=== PATIENT | female | born 1965 | race American Indian/Alaskan Native ===

== ENCOUNTER 2019-10-25 10:00 | Emergency (ER) | payer BC ==
[2019-10-25 10:07] VITALS: BP 129/45
--- NOTE | 2019-10-25 10:26 | Emergency Department Report ---
Suture/Staple Removal - HPI Chief Complaint: Laceration/Recheck/Suture Stated Complaint: STICHES REMOVAL Time Seen by Provider: 10/25/19 10:24 When Sutures or [place] Placed: 5-7 Days Ago Wound Location: had ED Review of Systems ROS: Stated complaint: STICHES REMOVAL Other details as noted in HPI Comment: All other systems reviewed and negative ED Past Medical Hx - Past Medical History Previous Medical History?: No - Surgical History Past Surgical History?: Yes Additional Surgical History: C SECTION - Family History Family history: no significant - Social History Smoking Status: Never Smoker Substance Use Type: None Suture Removal Exam - Exam General: Vital signs noted. No distress. Alert and acting appropriately. Wound: No Pathologic Erythema, No Tenderness, No Drainage, No Pus, No Wound Dehiscence Other Systems: All other systems reviewed and are unremarkable. ED Course Vital Signs 10/25/19 10:06 Temperature 97.5 F L Pulse Rate 63 Respiratory 16 Rate Blood Pressure 129/45 O2 Sat by Pulse 100 Oximetry ED Recheck MDM - Core Measures Measure Exclusions: not indicated - Differential Diagnosis Suture/Staple Removal - Medical Decision Making suture removal tolerated well Critical care attestation.: If time is entered above; I have spent that time in minutes in the direct care of this critically ill patient, excluding procedure time. ED Disposition Clinical Impression: Visit for suture removal Disposition: DC-01 TO HOME OR SELFCARE Is pt being admited?: No Does the pt Need Aspirin: No Condition: Stable Instructions: Suture Removal (ED) Referrals: CEASAR PADRON MD [Staff Physician] - 3-5 Days Time of Disposition: 10:25
== END 2019-10-25 10:31 | disposition home or self-care (01) ==
LOC: ED 10:00
DX: Z48.02 Encounter for removal of sutures (principal); Z98.890 Other specified postprocedural states

== ENCOUNTER 2020-06-02 03:20 | Emergency (ER) | payer BC ==
[2020-06-02 04:27] LABS: Basophils % (Auto) 0.5 % (0.0-1.8); Eosinophils # (Auto) 0.1 K/mm3 (0.0-0.4); Eosinophils % (Auto) 1.8 % (0.0-4.3); Hematocrit 40.1 % (30.3-42.9); Hemoglobin 13.1 gm/dl (10.1-14.3); Lymphocytes # (Auto) 2.8 K/mm3 (1.2-5.4); Lymphocytes % (Auto) 37.5 % (13.4-35.0); Mean Corpuscular HGB Conc 33 % (30-34); Mean Corpuscular Volume 80 fl (79-97); Monocytes # (Auto) 0.6 K/mm3 (0.0-0.8); Monocytes % (Auto) 8.1 % (0.0-7.3); Platelet Count 297 K/mm3 (140-440); Red Blood Count 5.02 M/mm3 (3.65-5.03)
[2020-06-02 04:29] LABS: Alanine Aminotransferase 31 units/L (7-56); Albumin 3.9 g/dL (3.9-5); BUN/Creatinine Ratio 16; Blood Urea Nitrogen 13 mg/dL (7-17); Calcium 9.4 mg/dL (8.4-10.2); Hemolysis Index 5
[2020-06-02 05:25] LABS: Bacteria,Urine 1+ /HPF (Negative); Bilirubin,Urine NEG (Negative); Blood,Urine NEG (Negative); Calcium Oxalate Crystals,Urine 1+; Color,Urine Yellow (Yellow); Mucus,Urine FEW /HPF; Protein,Urine <15 mg/dL mg/dL (Negative)
--- NOTE | 2020-06-02 07:43 | Emergency Department Report ---
ED General Adult HPI - General Chief complaint: Abdominal Pain Stated complaint: EMESIS/DIARRHEA Time Seen by Provider: 06/02/20 07:26 Source: patient Mode of arrival: Ambulatory Limitations: No Limitations - History of Present Illness Initial comments: 54-year-old -[place] female patient presents with complaints of upper abdominal pain x 2 days. Patient states pain occurs mostly after eating and also states she has postprandial vomiting and diarrhea. She describes the pain as sharp and rates it as a 6/10 in severity. No current pain per patient. She denies any hematemesis/coffee-ground emesis, melena/hematochezia, chest pain, shortness of breath, cough, recent antibiotic use, or urinary symptoms. She also reports she had a temperature of 101 yesterday that was resolved with Tylenol. Tylenol does help some with her pain. Abdominal surgical history includes a . She also states she does have issues with GERD but denies taking any medication for it. Also denies history of PUD/GI bleed or any other chronic medical issues. - Related Data Previous Rx's Medication Instructions Recorded Last Taken Type Ondansetron [Zofran Odt] 4 mg PO Q8HR #15 tab.rapdis 06/02/20 Unknown Rx Pantoprazole [Protonix] 40 mg PO QAM 14 Days #14 tablet 06/02/20 Unknown Rx Allergies Allergy/AdvReac Type Severity Reaction Status Date / Time No Known Allergies Allergy Unverified 10/25/19 10:03 ED Review of Systems ROS: Stated complaint: EMESIS/DIARRHEA Other details as noted in HPI Constitutional: chills, fever. denies: diaphoresis, malaise, weakness ENT: denies: ear pain, throat pain Respiratory: denies: cough, shortness of breath Cardiovascular: denies: chest pain, palpitations Endocrine: denies: excessive sweating Gastrointestinal: abdominal pain, nausea, vomiting, diarrhea. denies: constipation, hematemesis, melena, hematochezia Genitourinary: denies: urgency, dysuria, frequency, hematuria, abnormal menses Musculoskeletal: denies: back pain Skin: denies: change in color Neurological: denies: headache, weakness, paresthesias Hematological/Lymphatic: denies: easy bleeding, swollen glands ED Past Medical Hx - Past Medical History Previous Medical History?: No - Surgical History Past Surgical History?: Yes Additional Surgical History: C SECTION - Social History Smoking Status: Never Smoker Substance Use Type: None - Medications Home Medications: Home Medications Medication Instructions Recorded Confirmed Last Taken Type Ondansetron [Zofran Odt] 4 mg PO Q8HR #15 tab.rapdis 06/02/20 Unknown Rx Pantoprazole [Protonix] 40 mg PO QAM 14 Days #14 tablet 06/02/20 Unknown Rx ED Physical Exam - General Limitations: No Limitations General appearance: alert, in no apparent distress, obese - Head Head exam: Present: atraumatic, normocephalic - Eye Eye exam: Present: normal appearance. Absent: scleral icterus - ENT ENT exam: Present: normal orophraynx, mucous membranes moist - Neck Neck exam: Present: normal inspection - Respiratory Respiratory exam: Present: normal lung sounds bilaterally. Absent: respiratory distress, chest wall tenderness - Cardiovascular Cardiovascular Exam: Present: regular rate, normal rhythm. Absent: systolic murmur, diastolic murmur, rubs, gallop - GI/Abdominal GI/Abdominal exam: Present: soft, tenderness, normal bowel sounds. Absent: distended, rigid, organomegaly, mass - Expanded GI/Abdominal Exam Expanded GI/Abdominal exam: Present: Weathers's sign - Extremities Exam Extremities exam: Present: normal inspection - Back Exam Back exam: Present: normal inspection - Neurological Exam Neurological exam: Present: alert, oriented X3 - Psychiatric Psychiatric exam: Present: normal affect, normal mood - Skin Skin exam: Present: warm, dry, intact, normal color. Absent: rash, cyanosis, diaphoretic, erythema, petechiae, ecchymosis ED Course Vital Signs 06/02/20 06/02/20 06/02/20 03:36 10:47 11:08 Temperature 98.4 F 98.6 F Pulse Rate 58 L 56 L Respiratory 17 16 Rate Blood Pressure 145/52 Blood Pressure 141/74 [Left] O2 Sat by Pulse 98 99 Oximetry ED Medical Decision Making - Lab Data Result diagrams: 06/02/20 03:55 06/02/20 03:55 Lab Results 06/02/20 06/02/20 06/02/20 Range/Units 03:54 03:55 03:55 WBC 7.5 (4.5-11.0) K/mm3 RBC 5.02 (3.65-5.03) M/mm3 Hgb 13.1 (10.1-14.3) gm/dl Hct 40.1 (30.3-42.9) % MCV 80 (79-97) fl MCH 26 L (28-32) pg MCHC 33 (30-34) % RDW 15.0 (13.2-15.2) % Plt Count 297 (140-440) K/mm3 Lymph % (Auto) 37.5 H (13.4-35.0) % [place] % (Auto) 8.1 H (0.0-7.3) % Eos % (Auto) 1.8 (0.0-4.3) % Baso % (Auto) 0.5 (0.0-1.8) % Lymph # (Auto) 2.8 (1.2-5.4) K/mm3 [place] # (Auto) 0.6 (0.0-0.8) K/mm3 Eos # (Auto) 0.1 (0.0-0.4) K/mm3 Baso # (Auto) 0.0 (0.0-0.1) K/mm3 Seg Neutrophils % 52.1 (40.0-70.0) % Seg Neutrophils # 3.9 (1.8-7.7) K/mm3 Sodium 142 (137-145) mmol/L Potassium 4.3 (3.6-5.0) mmol/L Chloride 105.9 (98-107) mmol/L Carbon Dioxide 25 (22-30) mmol/L Anion Gap 15 mmol/L BUN 13 (7-17) mg/dL Creatinine 0.8 (0.6-1.2) mg/dL Estimated GFR > 60 ml/min BUN/Creatinine Ratio 16 % Glucose 117 H (65-100) mg/dL Calcium 9.4 (8.4-10.2) mg/dL Total Bilirubin 0.20 (0.1-1.2) mg/dL AST 24 (5-40) units/L ALT 31 (7-56) units/L Alkaline Phosphatase 60 (35-129) units/L Total Protein 7.1 (6.3-8.2) g/dL Albumin 3.9 (3.9-5) g/dL Albumin/Globulin Ratio 1.2 % Lipase 31 (13-60) units/L Urine Color Yellow (Yellow) Urine Turbidity Clear (Clear) Urine pH 6.0 (5.0-7.0) Ur Specific [place] 1.024 (1.003-1.030) Urine Protein <15 mg/dl (Negative) mg/dL Urine Glucose (UA) Neg (Negative) mg/dL Urine Ketones Neg (Negative) mg/dL Urine Blood Neg (Negative) Urine Nitrite Neg (Negative) Urine Bilirubin Neg (Negative) Urine Urobilinogen 2.0 (<2.0) mg/dL Ur Leukocyte Esterase Neg (Negative) Urine WBC (Auto) 1.0 (0.0-6.0) /HPF Urine RBC (Auto) 1.0 (0.0-6.0) /HPF U Epithel Cells (Auto) 2.0 (0-13.0) /HPF Urine Bacteria (Auto) 1+ (Negative) /HPF Calcium Oxalate Crystal 1+ Urine Mucus Few /HPF - Radiology Data Radiology results: report reviewed LIMITED RUQ ABDOMINAL ULTRASOUND INDICATION: pain, worse after eating. COMPARISON: No relevant prior imaging study available. FINDINGS: Pancreas: Visualized portions show no significant abnormality. Abdominal Aorta: No significant abnormality. IVC: No significant abnormality. Liver: The liver measures 16.7 cm in length. Diffusely echogenic. Normal hepatopedal blood flow in the main portal vein. Gallbladder: No significant abnormality. Bile ducts: No significant abnormality. Common bile duct measures 5 mm. Right kidney: No significant abnormality visualized.. Free fluid: None. Additional Findings: None. IMPRESSION: 1. Hepatomegaly with diffusely echogenic liver, most commonly seen with steatosis. - Medical Decision Making 54-year-old -[place] female patient presents with complaints of upper abdominal pain x 2 days. Patient states pain occurs mostly after eating and also states she has postprandial vomiting and diarrhea. She describes the pain as sharp and rates it as a 6/10 in severity. No current pain per patient. She denies any hematemesis/coffee-ground emesis, melena/hematochezia, chest pain, shortness of breath, cough, recent antibiotic use, or urinary symptoms. She also reports she had a temperature of 101 yesterday that was resolved with Tylenol. Tylenol does help some with her pain. Abdominal surgical history includes a . She also states she does have issues with GERD but denies taking any medication for it. Also denies history of PUD/GI bleed or any other chronic medical issues. On exam, patient has epigastric and right upper quadrant tenderness without rebound or guarding. CBC and CMP and lipase are normal. Right upper quadrant ultrasound shows fatty liver disease without cholecystitis or cholelithiasis. No vomiting observed here in ED and she is tolerating fluids p.o. Vitals are normal, she is well-appearing, she is stable for discharge home. Will treat for gastroenteritis. Recommend follow-up with GI. Strict return precautions were discussed in detail with patient who verbalizes understanding Critical care attestation.: If time is entered above; I have spent that time in minutes in the direct care of this critically ill patient, excluding procedure time. ED Disposition Clinical Impression: Fatty liver, Acute upper abdominal pain, Gastroenteritis GERD (gastroesophageal reflux disease) Qualifiers: Esophagitis presence: esophagitis presence not specified Qualified Code(s): K21.9 - Gastro-esophageal reflux disease without esophagitis Disposition: DC-01 TO HOME OR SELFCARE Is pt being admited?: No Condition: Stable Instructions: Gastroenteritis (ED), Non-Alcoholic Fatty Liver Disease (ED), Abdominal Pain (ED) Prescriptions: Pantoprazole [Protonix] 40 mg PO QAM 14 Days #14 tablet Ondansetron [Zofran Odt] 4 mg PO Q8HR #15 tab.rapdis Referrals: JESSICA PARIS MD [Primary Care Provider] - 2-3 Days Forms: Work/School Release Form(ED)
--- NOTE | 2020-06-02 10:34 | Ultrasound Report ---
LIMITED RUQ ABDOMINAL ULTRASOUND INDICATION: pain, worse after eating. COMPARISON: No relevant prior imaging study available. FINDINGS: Pancreas: Visualized portions show no significant abnormality. Abdominal Aorta: No significant abnormality. IVC: No significant abnormality. Liver: The liver measures 16.7 cm in length. Diffusely echogenic. Normal hepatopedal blood flow in t he main portal vein. Gallbladder: No significant abnormality. Bile ducts: No significant abnormality. Common bile duct measures 5 mm. Right kidney: No significant abnormality visualized.. Free fluid: None. Additional Findings: None. IMPRESSION: 1. Hepatomegaly with diffusely echogenic liver, most commonly seen with steatosis. Signer Name: Paul Baker MD Signed: 06/02/2020 10:29 AM Workstation Name: [id number]
[2020-06-02] MEDS ORDERED: ONDANSETRON 4 MG ODT TAB PO ONE (10:36)
[2020-06-02] MEDS ORDERED: ALUM-MAG HYDROXIDE-SIMETHICONE 200-200-20MG/5ML ORAL LIQD 30 ML PO ONE (10:36)
[2020-06-02] MEDS ORDERED: LIDOCAINE VISCOUS 2% 15 ML ORAL LIQD PO ONE (10:36)
[2020-06-02] MEDS ORDERED: LIDOCAINE (1%) 10 MG/1 ML VIAL 20 ML MDV INFILTRATI ONE (11:02)
[2020-06-02] MEDS ORDERED: oxyCODONE /ACETAMINOPHEN 5-325MG TAB PO ONE (11:02)
[2020-06-02] MEDS ORDERED: CLINDAMYCIN 150 MG CAP PO ONE (11:06)
[2020-06-02 11:08] VITALS: BP 141/74
== END 2020-06-02 11:09 | disposition home or self-care (01) ==
LOC: ED 03:20
DX: K21.9 Gastro-esophageal reflux disease without esophagitis (principal); K52.89 Other specified noninfective gastroenteritis and colitis; K76.0 Fatty (change of) liver, not elsewhere classified; Z98.890 Other specified postprocedural states
CPT/HCPCS: 36415; 76705; 80053; 81001; 83690; 85025; Q0162

== ENCOUNTER 2020-07-18 02:31 | Emergency (ER) | payer BC ==
[2020-07-18 03:01] VITALS: BP 109/45
[2020-07-18 04:18] LABS: Bilirubin,Urine NEG (Negative); Blood,Urine NEG (Negative); Color,Urine Yellow (Yellow); Mucus,Urine 1+ /HPF; Protein,Urine <15 mg/dL mg/dL (Negative)
[2020-07-18] MEDS ORDERED: NITROFURANTOIN MONOHYD/M-CRYST 100 MG CAP PO ONE (05:01)
[2020-07-18] MEDS ORDERED: IBUPROFEN 800 MG TAB PO ONE (05:01)
[2020-07-18 06:03] LABS: Basophils # (Auto) 0.1 K/mm3 (0.0-0.1); Basophils % (Auto) 0.7 % (0.0-1.8); Eosinophils # (Auto) 0.1 K/mm3 (0.0-0.4); Eosinophils % (Auto) 1.7 % (0.0-4.3); Hematocrit 43.3 % (30.3-42.9); Hemoglobin 13.8 gm/dl (10.1-14.3); Lymphocytes # (Auto) 3.3 K/mm3 (1.2-5.4); Lymphocytes % (Auto) 42.8 % (13.4-35.0); Mean Corpuscular HGB Conc 32 % (30-34); Mean Corpuscular Volume 79 fl (79-97); Monocytes # (Auto) 0.6 K/mm3 (0.0-0.8); Monocytes % (Auto) 7.7 % (0.0-7.3); Platelet Count 306 K/mm3 (140-440); Red Blood Count 5.47 M/mm3 (3.65-5.03); Red Cell Distribution Width 14.3 % (13.2-15.2)
[2020-07-18 06:18] LABS: Alanine Aminotransferase 31 units/L (7-56); BUN/Creatinine Ratio 13; Blood Urea Nitrogen 10 mg/dL (7-17); Calcium 9.6 mg/dL (8.4-10.2); Hemolysis Index 20
--- NOTE | 2020-07-18 06:27 | Emergency Department Report ---
ED Female HPI - General Chief complaint: Abdominal Pain Stated complaint: RIGHT SIDE PAIN Source: patient Mode of arrival: Ambulatory Limitations: No Limitations - History of Present Illness Initial comments: Patient is a 54-year-old female who presents for right flank pain radiating to suprapubic for 3 days.. Patient states dysuria frequency urgency. Patient denies hematuria. There is no history of renal stones there is no fever chills or nausea vomiting. Pain is described at 3/10 stinging. There is no vaginal pain no vaginal discharge no vaginal bleeding patient is postmenopausal/and status post tubal ligation. Patient is tolerating p.o. intake without symptoms. MD Complaint: dysuria - Related Data Previous Rx's Medication Instructions Recorded Last Taken Type Ondansetron [Zofran Odt] 4 mg PO Q8HR #15 tab.rapdis 06/02/20 Unknown Rx Pantoprazole [Protonix] 40 mg PO QAM 14 Days #14 tablet 06/02/20 Unknown Rx Ibuprofen [Motrin 800 MG tab] 800 mg PO Q8HR PRN #30 tablet 07/18/20 Unknown Rx Nitrofurantoin [place]/M-Cryst 100 mg PO BID 7 Days #14 capsule 07/18/20 Unknown Rx [Macrobid CAP] Allergies Allergy/AdvReac Type Severity Reaction Status Date / Time No Known Allergies Allergy Unverified 10/25/19 10:03 ED Review of Systems ROS: Stated complaint: RIGHT SIDE PAIN Other details as noted in HPI Constitutional: denies: chills, fever Eyes: denies: eye pain, eye discharge, vision change ENT: denies: ear pain, throat pain Respiratory: denies: cough, shortness of breath, wheezing Cardiovascular: denies: chest pain, palpitations Endocrine: no symptoms reported Gastrointestinal: abdominal pain (super pubic). denies: nausea, vomiting Genitourinary: urgency, dysuria, frequency. denies: hematuria, discharge Musculoskeletal: back pain (right flank pain ) Skin: denies: rash, lesions Neurological: denies: headache, weakness, paresthesias Psychiatric: denies: anxiety, depression Hematological/Lymphatic: denies: easy bleeding, easy bruising ED Past Medical Hx - Past Medical History Previous Medical History?: No - Surgical History Past Surgical History?: Yes Additional Surgical History: C SECTION - Social History Smoking Status: Never Smoker Substance Use Type: None - Medications Home Medications: Home Medications Medication Instructions Recorded Confirmed Last Taken Type Ondansetron [Zofran Odt] 4 mg PO Q8HR #15 tab.rapdis 06/02/20 Unknown Rx Pantoprazole [Protonix] 40 mg PO QAM 14 Days #14 tablet 06/02/20 Unknown Rx Ibuprofen [Motrin 800 MG tab] 800 mg PO Q8HR PRN #30 tablet 07/18/20 Unknown Rx Nitrofurantoin [place]/M-Cryst 100 mg PO BID 7 Days #14 capsule 07/18/20 Unknown Rx [Macrobid CAP] ED Physical Exam - General Limitations: No Limitations General appearance: alert, in no apparent distress - Head Head exam: Present: atraumatic, normocephalic - Eye Eye exam: Present: normal appearance, EOMI - ENT ENT exam: Present: mucous membranes moist - Neck Neck exam: Present: normal inspection - Respiratory Respiratory exam: Present: normal lung sounds bilaterally. Absent: respiratory distress, wheezes, stridor - Cardiovascular Cardiovascular Exam: Present: regular rate, normal rhythm, normal heart sounds. Absent: systolic murmur, diastolic murmur, rubs, gallop - GI/Abdominal GI/Abdominal exam: Present: soft, normal bowel sounds. Absent: distended, tenderness, guarding, rebound, rigid, bruit, hernia - Rectal Rectal exam: Present: deferred - Extremities Exam Extremities exam: Present: normal inspection, full ROM. Absent: tenderness - Back Exam Back exam: Present: normal inspection, full ROM. Absent: tenderness, CVA tenderness (R), CVA tenderness (L) - Neurological Exam Neurological exam: Present: alert, oriented X3, CN II-XII intact, normal gait - Psychiatric Psychiatric exam: Present: normal affect, normal mood - Skin Skin exam: Present: warm, dry, intact, normal color. Absent: rash ED Course Vital Signs 07/18/20 02:48 Temperature 98.1 F Pulse Rate 65 Respiratory 18 Rate Blood Pressure 109/45 O2 Sat by Pulse 96 Oximetry ED Medical Decision Making - Lab Data Result diagrams: 07/18/20 05:45 07/18/20 05:45 Labs 07/18/20 07/18/20 07/18/20 05:45 05:45 Unknown WBC 7.8 RBC 5.47 H Hgb 13.8 Hct 43.3 H MCV 79 MCH 25 L MCHC 32 RDW 14.3 Plt Count 306 Lymph % (Auto) 42.8 H [place] % (Auto) 7.7 H Eos % (Auto) 1.7 Baso % (Auto) 0.7 Lymph # (Auto) 3.3 [place] # (Auto) 0.6 Eos # (Auto) 0.1 Baso # (Auto) 0.1 Seg Neutrophils % 47.1 Seg Neutrophils # 3.7 Sodium 141 Potassium 4.4 Chloride 105.2 Carbon Dioxide 25 Anion Gap 15 BUN 10 Creatinine 0.8 Estimated GFR > 60 BUN/Creatinine Ratio 13 Glucose 99 Calcium 9.6 Total Bilirubin 0.30 AST 25 ALT 31 Alkaline Phosphatase 63 Total Protein 7.9 Albumin 4.0 Albumin/Globulin Ratio 1.0 Urine Color Yellow Urine Turbidity Clear Urine pH 5.0 Ur Specific [place] 1.025 Urine Protein <15 mg/dl Urine Glucose (UA) Neg Urine Ketones Neg Urine Blood Neg Urine Nitrite Neg Urine Bilirubin Neg Urine Urobilinogen 2.0 Ur Leukocyte Esterase Tr Urine WBC (Auto) 6.0 Urine RBC (Auto) 4.0 U Epithel Cells (Auto) 12.0 Urine Mucus 1+ - Medical Decision Making labs noted normal, UA: luek, wbc, will tx for dysuria, symptoms are improved with medications given in ed, pt for dc to home with rx pt will follow up with pcp in 2-3 days. Critical care attestation.: If time is entered above; I have spent that time in minutes in the direct care of this critically ill patient, excluding procedure time. ED Disposition Clinical Impression: Dysuria Disposition: DC-01 TO HOME OR SELFCARE Is pt being admited?: No Does the pt Need Aspirin: No Condition: Stable Instructions: Abdominal Pain (ED), Dysuria Prescriptions: Nitrofurantoin [place]/M-Cryst [Macrobid CAP] 100 mg PO BID 7 Days #14 capsule Ibuprofen [Motrin 800 MG tab] 800 mg PO Q8HR PRN #30 tablet PRN Reason: pain Referrals: CEASAR PADRON MD [Staff Physician] - 3-5 Days Forms: Work/School Release Form(ED) Time of Disposition: 06:31
== END 2020-07-18 06:48 | disposition home or self-care (01) ==
LOC: ED 02:31
DX: R30.0 Dysuria (principal); R10.2 Pelvic and perineal pain; Z98.890 Other specified postprocedural states; Z79.1 Long term (current) use of non-steroidal anti-inflammatories (NSAID); Z79.899 Other long term (current) drug therapy
CPT/HCPCS: 36415; 80053; 81001; 85025

== ENCOUNTER 2020-08-09 09:47 | Emergency (ER) | payer BC ==
[2020-08-09] MEDS ORDERED: ASPIRIN 325 MG TAB PO ONE (10:12)
--- NOTE | 2020-08-09 10:33 | XRay Report ---
CHEST 2 VIEWS INDICATION / CLINICAL INFORMATION: Chest Pain. Right-sided chest pain for 5 days. COMPARISON: None available. FINDINGS: SUPPORT DEVICES: None. HEART / MEDIASTINUM: No significant abnormality. LUNGS / PLEURA: No significant pulmonary or pleural abnormality. No pneumothorax. ADDITIONAL FINDINGS: No significant additional findings. IMPRESSION: 1. No acute findings. Signer Name: Bindu Cadena MD Signed: 08/09/2020 10:29 AM Workstation Name: [id number]
[2020-08-09 12:28] LABS: Basophils % (Auto) 0.5 % (0.0-1.8); Eosinophils # (Auto) 0.1 K/mm3 (0.0-0.4); Eosinophils % (Auto) 1.5 % (0.0-4.3); Hematocrit 42.4 % (30.3-42.9); Hemoglobin 13.4 gm/dl (10.1-14.3); Lymphocytes # (Auto) 2.9 K/mm3 (1.2-5.4); Mean Corpuscular HGB Conc 32 % (30-34); Mean Corpuscular Volume 80 fl (79-97); Monocytes # (Auto) 0.6 K/mm3 (0.0-0.8); Monocytes % (Auto) 7.3 % (0.0-7.3); Platelet Count 307 K/mm3 (140-440); Red Blood Count 5.32 M/mm3 (3.65-5.03); Red Cell Distribution Width 14.6 % (13.2-15.2)
[2020-08-09 12:45] LABS: BUN/Creatinine Ratio 11; Blood Urea Nitrogen 9 mg/dL (7-17); Calcium 9.2 mg/dL (8.4-10.2); Hemolysis Index 12
[2020-08-09] MEDS ORDERED: ASPIRIN 325 MG TAB ONE (19:56)
[2020-08-09] MEDS ORDERED: MORPHINE 4 MG/1 ML INJ IV ONE (20:19)
[2020-08-09] MEDS ORDERED: ASPIRIN EC 325 MG TAB PO ONE (20:19)
[2020-08-09] MEDS ORDERED: ONDANSETRON 4 MG/2 ML INJ IV ONE (20:20)
[2020-08-09] MEDS ORDERED: SODIUM CHLORIDE 0.9% 1000 ML 1,000 ML IV ONE (20:20)
--- NOTE | 2020-08-09 22:39 | Cat Scan Report ---
CTA CHEST WITH IV CONTRAST INDICATION: Chest pain TECHNIQUE: Axial CT images were obtained through the chest after injection of IV contrast. Coronal oblique 2-D reconstruction images were produced. 3 plane MIP reconstruction images were produced at an [employer] workstation. All CTs at this facility utilize dose reduction techniques including automated expos ure control, iterative reconstruction and weight based dosing when appropriate to reduce patient radi ation dose to as low as reasonable achievable. COMPARISON: Chest radiograph, 08/09/2020 FINDINGS: No filling defects are visualized within the central or segmental pulmonary arteries to suggest pulmo nary embolism. The heart is normal in size. The thoracic aorta is normal in caliber. Evaluation of th e lung parenchyma demonstrates no focal airspace disease or pleural effusion. Limited imaging of the upper abdomen demonstrates no evidence of acute abnormality.. Bones and soft tissues: No acute bony abnormality is visualized. Soft tissue structures appear grossl y normal. IMPRESSION: 1. No evidence of pulmonary embolism or acute parenchymal process. Signer Name: Adriana Correa MD Signed: 08/09/2020 10:34 PM Workstation Name: [id number]
--- NOTE | 2020-08-09 23:03 | Emergency Department Report ---
<OTIS CELESTIN - Last Filed: 08/09/20 22:59> ED Chest Pain HPI - General Chief Complaint: Chest Pain Stated Complaint: CHEST PAIN ON RT SIDE Source: patient Mode of arrival: Ambulatory Limitations: No Limitations - History of Present Illness Initial Comments: Patient is a 54-year-old -[place] female with no past medical history who presents to the ED with complaint of acute onset persistent right-sided chest pain intermittently for the last 5 days, worse in the last 12 hours. Patient states that the pain when present is sharp, persistent and nonradiating. Patient states that the pain gets worse with palpation or movement when present. Patient states that the pain was especially worse in severity in the last 8 hours. Patient also states that she has been having a lot of stress in her family and states that this may also be contributing to her right-sided chest wall pain. Patient denies dizziness, syncope, headache, shortness of br eath, cough, nausea and vomiting, diaphoresis, diarrhea, abdominal pain, neck pain, change in vision, palpitations or heavy lifting, fall and traumatic injury or numbness and tingling of upper and lower extremities bilaterally. MD Complaint: chest pain (right sided), other (anxious) -: Sudden, days(s) (5) Onset: awoke with symptoms Pain Location: right chest Pain Radiation: none Severity: severe Severity scale (0 -10): 9 Quality: aching, sharp Consistency: intermittent Improves With: nothing Worsens With: palpation, movement re: denies: nausea, vomting, diaphoresis, dyspnea, sense of impending doom Other Symptoms: denies: cough, fever, syncope, rash, acid taste in mouth, leg swelling, palpitations, burping, other Treatments Prior to Arrival: none Aspirin use within the Past 7 Days: (0) No - Related Data On Oral Contraceptives: No Previous Rx's Medication Instructions Recorded Last Taken Type Ondansetron [Zofran Odt] 4 mg PO Q8HR #15 tab.rapdis 06/02/20 Unknown Rx Pantoprazole [Protonix] 40 mg PO QAM 14 Days #14 tablet 06/02/20 Unknown Rx Ibuprofen [Motrin 800 MG tab] 800 mg PO Q8HR PRN #30 tablet 07/18/20 Unknown Rx Nitrofurantoin Dade/M-Cryst 100 mg PO BID 7 Days #14 capsule 07/18/20 Unknown Rx [Macrobid CAP] Naproxen 500 mg PO Q12H PRN #30 tablet 08/09/20 Unknown Rx hydrOXYzine PAMOATE [Vistaril] 25 mg PO Q8HR PRN #30 capsule 08/09/20 Unknown Rx Allergies Allergy/AdvReac Type Severity Reaction Status Date / Time No Known Allergies Allergy Unverified 10/25/19 10:03 Heart Score - HEART Score History: Slightly suspicious EKG: Normal Age: 45-65 Risk factors: No known risk factors Troponin: < normal limit HEART Score: 1 - Critical Actions Critical Actions: 0-3 pts:0.9-1.7%risk of adverse cardiac event.Candidate for discharge ED Review of Systems Constitutional: denies: chills, fever Eyes: denies: eye pain, eye discharge, vision change ENT: denies: ear pain, throat pain Respiratory: denies: cough, shortness of breath, wheezing Cardiovascular: chest pain (right chest wall pain). denies: palpitations Endocrine: no symptoms reported Gastrointestinal: denies: abdominal pain, nausea, vomiting, diarrhea Genitourinary: denies: urgency, dysuria, discharge Musculoskeletal: denies: back pain, joint swelling, arthralgia Skin: denies: rash, lesions Neurological: denies: headache, weakness, paresthesias Psychiatric: denies: anxiety, depression Hematological/Lymphatic: denies: easy bleeding, easy bruising ED Past Medical Hx - Past Medical History Previous Medical History?: No - Surgical History Past Surgical History?: Yes Additional Surgical History: C SECTION - Social History Smoking Status: Never Smoker Substance Use Type: None - Medications Home Medications: Home Medications Medication Instructions Recorded Confirmed Last Taken Type Ondansetron [Zofran Odt] 4 mg PO Q8HR #15 tab.rapdis 06/02/20 Unknown Rx Pantoprazole [Protonix] 40 mg PO QAM 14 Days #14 tablet 06/02/20 Unknown Rx Ibuprofen [Motrin 800 MG tab] 800 mg PO Q8HR PRN #30 tablet 07/18/20 Unknown Rx Nitrofurantoin Dade/M-Cryst 100 mg PO BID 7 Days #14 capsule 07/18/20 Unknown Rx [Macrobid CAP] Naproxen 500 mg PO Q12H PRN #30 tablet 08/09/20 Unknown Rx hydrOXYzine PAMOATE [Vistaril] 25 mg PO Q8HR PRN #30 capsule 08/09/20 Unknown Rx ED Physical Exam - General Limitations: No Limitations General appearance: alert, in no apparent distress - Head Head exam: Present: atraumatic, normocephalic, normal inspection - Eye Eye exam: Present: normal appearance, PERRL, EOMI Pupils: Present: normal accommodation - ENT ENT exam: Present: normal exam, normal orophraynx, mucous membranes moist, TM's normal bilaterally, normal external ear exam - Neck Neck exam: Present: normal inspection, full ROM - Respiratory Respiratory exam: Present: normal lung sounds bilaterally, chest wall tenderness (Palpable reproducible right-sided chest wall tenderness). Absent: respiratory distress, wheezes, rales, rhonchi, accessory muscle use, decreased breath dejuan nds, prolonged expiratory - Cardiovascular Cardiovascular Exam: Present: normal rhythm, bradycardia, normal heart sounds. Absent: systolic murmur, diastolic murmur, rubs, gallop - GI/Abdominal GI/Abdominal exam: Present: soft, normal bowel sounds. Absent: tenderness, guarding, rebound, hyperactive bowel sounds, hypoactive bowel sounds, organomegaly, hernia - Extremities Exam Extremities exam: Present: normal inspection, full ROM, normal capillary refill - Back Exam Back exam: Present: normal inspection, full ROM. Absent: tenderness, CVA tenderness (R), CVA tenderness (L), muscle spasm, paraspinal tenderness - Neurological Exam Neurological exam: Present: alert, oriented X3, CN II-XII intact, normal gait, reflexes normal - Psychiatric Psychiatric exam: Present: normal affect, normal mood, anxious - Skin Skin exam: Present: warm, dry, intact, normal color. Absent: rash DALTON score - Dalton Score Age > 65: (0) No Aspirin use within the Past 7 Days: (0) No 3 or more CAD Risk Factors: (0) No 2 or more Angina events in past 24 hrs: (0) No Known CAD with more than 50% Stenosis: (0) No Elevated Cardiac Markers: (0) No ST Deviation Greater than 0.5mm: (0) No DALTON Score: 0 ED Medical Decision Making - Lab Data Result diagrams: 08/09/20 11:52 08/09/20 11:52 - EKG Data EKG shows normal: sinus rhythm Rate: bradycardia - EKG Data Interpretation: normal EKG 08/09/20 23:09 The EKG shows sinus bradycardia with a ventricular rate of 54 bpm, with low voltage precordial leads and consider anteroseptal infarct - Radiology Data Radiology results: report reviewed, image reviewed Findings [address] [address] XRay Report Signed Patient: REYNA YANES MR#: [id number] : 1965 Acct:[id number] Age/Sex: 54 / F ADM Date: 08/09/20 Loc: ED Attending Dr: Ordering Physician: ED MD CHELSEA Date of Service: 08/09/20 Procedure(s): XR chest routine 2V Accession Number(s): [id number] cc: ED MD CHELSEA Fluoro Time In Minutes: CHEST 2 VIEWS INDICATION / CLINICAL INFORMATION: Chest Pain. Right-sided chest pain for 5 days. COMPARISON: None available. FINDINGS: SUPPORT DEVICES: None. HEART / MEDIASTINUM: No significant abnormality. LUNGS / PLEURA: No significant pulmonary or pleural abnormality. No pneumothorax. ADDITIONAL FINDINGS: No significant additional findings. IMPRESSION: 1. No acute findings. Signer Name: Bindu Cadena MD Signed: 08/09/2020 10:29 AM Workstation Name: [id number] Transcribed By: DT Dictated By: Otis Cadena MD Electronically Authenticated By: Otis Cadena MD Signed Date/Time: 08/09/20 1029 DD/ 1028 TD/TT: Findings [facility] [address] [place] [address] Cat Scan Report Signed Patient: REYNA YANES MR#: [id number] : 1965 Acct:[id number] Age/Sex: 54 / F ADM Date: 08/09/20 Loc: ED Attending Dr: Ordering Physician: MICHAEL EMERY Date of Service: 08/09/20 Procedure(s): CT angio chest Accession Number(s): [id number] cc: MICHAEL EMERY CTA CHEST WITH IV CONTRAST INDICATION: Chest pain TECHNIQUE: Axial CT images were obtained through the chest after injection of IV contrast. Coronal oblique 2- D reconstruction images were produced. 3 plane MIP reconstruction images were produced at an independent workstation. All CTs at this facility utilize dose reduction techniques including automated exposure control, iterative reconstruction and weight based dosing when appropriate to reduce patient radiation dose to as low as reasonable achievable. COMPARISON: Chest radiograph, 08/09/2020 FINDINGS: No filling defects are visualized within the central or segmental pulmonary arteries to suggest pulmonary embolism. The heart is normal in size. The thoracic aorta is normal in caliber. Evaluation of the lung parenchyma demonstrates no focal airspace disease or pleural effusion. Limited imaging of the upper abdomen demonstrates no evidence of acute abnormality.. Bones and soft tissues: No acute bony abnormality is visualized. Soft tissue structures appear grossly normal. IMPRESSION: 1. No evidence of pulmonary embolism or acute parenchymal process. Signer Name: Adriana Correa MD Signed: 08/09/2020 10:34 PM Workstation Name: [id number] Transcribed By: EB Dictated By: Adriana Correa MD Electronically Authenticated By: Adriana Correa MD Signed Date/Time: 08/09/202233 DD/ 30 TD/TT: - Medical Decision Making This is a 54-year-old -[place] female with no past medical history who presents to the ED with complaint of acute onset persistent right-sided chest pain intermittently for the last 5 days, worse in the last 12 hours. Patient states that the pain when present is sharp, persistent and nonradiating. Patient states that the pain gets worse with palpation or movement when present. Patient states that the pain was especially worse in severity in the last 8 hours. Patient also states that she has been having a lot of stress in her family and states that this may also be contributing to her right-sided chest wall pain. In the ED, patient is alert and oriented x3 and is not in distress with normal vital signs. Chest x-ray shows no acute cardiopulmonary abnormalities or pneumonitis. Patient was treated in the ED with aspirin and morphine. EKG shows sinus bradycardia with a ventricular rate of 54 bpm, with low voltage precordial leads and consider anteroseptal infarct. Lab test results were reviewed and are all nonactionable except for elevated D-dimer levels of 252.30. The initial and 2 other repeat troponin levels were normal. CTA chest showed no evidence of pulmonary embolism or acute parenchymal process. The patient's heart score is 1 and the patient is PERC negative per Wells criteria. On reevaluation, patient resting comfortably while texting on the phone and talking to family. The patient's case was discussed with the ED attending physician Dr. Heath who advised that the patient be discharged home and given a referral to the cut off saw grader Dr. Shelton for outpatient follow-up and possible stress test. Patient information was faxed to Dr. Shelton's office, and it is expected that Dr. Shelton's office shall communicate with the patient for further evaluation. Patient was therefore discharged home and advised to expect a phone call from the cut off saw grader office for follow-up. Patient was however advised return to the ED immediately if symptoms get worse. - Differential Diagnosis ACS; PE; Dissection; Pneumonia; GERD; Costochondritis; Muscle strain ED Disposition Clinical Impression: Right-sided chest pain, Right-sided chest wall pain, Anxiety as acute reaction to exceptional stress, Acute costochondritis Disposition: DC-01 TO HOME OR SELFCARE Is pt being admited?: No Does the pt Need Aspirin: No Condition: Stable Instructions: Generalized Anxiety Disorder, Adult, Costochondritis, [id number], Chest Wall Pain, [id number], Nonspecific Chest Pain, Adult, [id number], Chest Pain (ED) Additional Instructions: All lab test results were reviewed and are all nonactionable. Chest x-ray shows no acute cardiopulmonary abnormalities or pneumonitis. The chest CTA showed no evidence of pulmonary embolism. Therefore take medications as needed for pain, and follow-up with the cut off saw grader Dr. Shelton as advised. Expect a phone call from his office for a scheduled follow-up visit. Return to the ED immediately if symptoms get worse. Prescriptions: Naproxen 500 mg PO Q12H PRN #30 tablet PRN Reason: Pain , Severe (7-10) hydrOXYzine PAMOATE [Vistaril] 25 mg PO Q8HR PRN #30 capsule PRN Reason: Anxiety Referrals: ARELI SHELTON MD [Staff Physician] - 3-5 Days CEASAR PADRON MD [Staff Physician] - 3-5 Days Forms: Work/School Release Form(ED) Time of Disposition: 23:05 Print Language: IRAQI <FABBY HEATH III - Last Filed: 08/09/20 23:39> ED Review of Systems ROS: Stated complaint: CHEST PAIN ON RT SIDE Other details as noted in HPI ED Course Vital Signs 08/09/20 10:08 Temperature 98.6 F Pulse Rate 53 L Respiratory 18 Rate Blood Pressure 121/66 O2 Sat by Pulse 96 Oximetry - Reevaluation(s) Reevaluation #1: I reviewed the findings and management of this patient in real-time and I have personally seen and examined this patient and participated in the decision making for this patient with the midlevel. Patient is a 54-year-old female that presents emergency room with right-sided chest pain. Patient's chest pain on exam is reproducible. I examined the patient. Patient has clear lung sounds bilaterally, CV exam is normal, normal S1 and S2. Patient neurologically intact. Palpation of the right chest wall reproduces the patient's symptoms and the patient had right chest wall tenderness. Patient's has no past medical history. Patient's cardiac risk factors are low. Patient's heart score is low. Patient is stable to be followed as an outpatient. Patient's information sent over to our local cut off saw grader for risk stratification. I reviewed all the patient's labs. I reviewed the patient's EKG. I reviewed the patient's diagnostic studies. I discussed all results and clinical findings with patient. I discussed plan of care with patient. Patient agrees with plan of care. Patient is stable for discharge. Patient will be discharged home. Patient given discharge inst ructions. Patient voiced understanding of discharge instructions. 08/09/20 23:25 ED Medical Decision Making - Lab Data Result diagrams: 08/09/20 11:52 08/09/20 11:52 - EKG Data -: EKG Interpreted by Me EKG shows normal: sinus rhythm, axis, intervals, QRS complexes, ST-T waves Rate: bradycardia - EKG Data Interpretation: normal EKG - Radiology Data Radiology results: report reviewed, image reviewed Critical care attestation.: If time is entered above; I have spent that time in minutes in the direct care of this critically ill patient, excluding procedure time. ED Disposition Is pt being admited?: No Does the pt Need Aspirin: No
[2020-08-10 02:08] VITALS: BP 124/81
== END 2020-08-10 00:42 | disposition home or self-care (01) ==
LOC: ED 09:47
DX: M94.0 Chondrocostal junction syndrome [Tietze] (principal); R07.89 Other chest pain; F41.1 Generalized anxiety disorder; F43.0 Acute stress reaction; Z98.890 Other specified postprocedural states; Z79.1 Long term (current) use of non-steroidal anti-inflammatories (NSAID); Z79.899 Other long term (current) drug therapy
CPT/HCPCS: 36415; 71046; 71275; 80048; 84484; 85025; 85379; 93005; 96361; 96374; 96375; 99284; J2270; J2405; J7030; Q9967